=== PATIENT | male | born 1945 | race Caucasian/White ===

== ENCOUNTER 2017-07-24 06:34 | Day surgery (SDC) | payer MEDICARE ==
[~2017-07-24] VITALS: Ht 175.3 cm; Wt 111.1 kg
[~2017-07-24 06:34] MED LIST: ASPI-555 PO; COLE625 PO; LISI-613 PO; PRED5SOL PO
[2017-07-24] MEDS ORDERED: SODIUM CHLORIDE 0.9% 1000ML 1,000 ML IV ONE (06:43)
[2017-07-24 07:09] VITALS: BP 144/86
[2017-07-24] MEDS ORDERED: PROPOFOL 10 MG/ML 20ML VIAL IV ONE ×2 (08:09)
[2017-07-24] MEDS ORDERED: PHENYLEPHRINE HCL 10 MG/ML 1ML VIAL IV ONE (08:30)
== END 2017-07-24 09:10 ==
LOC: DAH 06:34
PROVIDERS: ATTEND Internal Medicine Gastroenterology
DX: Z12.11 Encounter for screening for malignant neoplasm of colon (principal); D12.3 Benign neoplasm of transverse colon; K57.30 Diverticulosis of large intestine without perforation or abscess without bleeding; I10 Essential (primary) hypertension; E78.5 Hyperlipidemia, unspecified; G47.33 Obstructive sleep apnea (adult) (pediatric); Z98.890 Other specified postprocedural states; Z82.49 Family history of ischemic heart disease and other diseases of the circulatory system; Z88.2 Allergy status to sulfonamides
CPT/HCPCS: 45385; A4606; J2370; J2704 ×2; J7030